=== PATIENT | male | born 1965 | race Caucasian/White ===

== ENCOUNTER 2017-12-30 17:15 | Emergency (ER) | payer OTHER ==
[2017-12-30 17:22] VITALS: BMI 23.1
[2017-12-30] MEDS ORDERED: ACETAMINOPHEN 325 MG TABLET (FP) PO ONE (17:38)
[2017-12-30] MEDS ORDERED: LORATADINE 10 MG TABLET PO ONE (17:38)
[2017-12-30] MEDS ORDERED: ACETAMINOPHEN 325 MG TABLET (FP) ONE (17:41)
[2017-12-30] MEDS ORDERED: LORATADINE 10 MG TABLET ONE (17:41)
--- NOTE | 2017-12-30 17:52 | PDOC ---
History of Present Illness - General Chief Complaint: Respiratory Stated Complaint: COUGHING Time Seen by Provider: 12/30/17 17:23 History Source: Patient Exam Limitations: No Limitations - History of Present Illness Initial Comments: CHIEF COMPLAINT: 52 y/o febrile, tachycardic male c/o fever, cough and cold symptoms x 1 week. HISTORY OF PRESENT ILLNESS: The patient states he has a productive cough of dark sputum. He took a cough medicine yesterday but nothing else. He does not have a history of high blood pressure. He denies POSADA, neck pain, n/v/d, runny nose, nasal congestion, dizziness, CP, SOB. Past History - Past Medical History Allergies/Adverse Reactions: Allergies Allergy/AdvReac Type Severity Reaction Status Date / Time No Known Allergies Allergy Verified 12/30/17 17:22 Home Medications: Ambulatory Orders Azithromycin [Zithromax 250mg Tablets -] 250 mg PO UTDICT #6 tab 12/30/17 COPD: No Hypercholesterolemia: Yes - Suicide/Smoking/Psychosocial Hx Smoking History: Never smoked Review of Systems - Review of Systems Able to Perform ROS?: Yes Constitutional: Yes: Fever. No: Chills, Night Sweats HEENTM: Yes: Throat Pain, Other (painful swallowing). No: Ear Pain, Ear Discharge, Throat Swelling, Difficulty Swallowing Respiratory: Yes: Cough. No: Shortness of Breath, Wheezing Cardiac (ROS): No: Chest Pain ABD/GI: No: Diarrhea, Vomiting Musculoskeletal: No: Neck Pain Neurological: No: Headache, Dizziness *Physical Exam - Vital Signs Last Vital Signs Temp Pulse Resp BP Pulse Ox 99.5 F 102 H 20 150/106 98 12/30/17 17:20 12/30/17 17:20 12/30/17 17:20 12/30/17 17:20 12/30/17 17:20 - Physical Exam Comments: The patient is non toxic but ill appearing. General Appearance: Yes: Nourished, Appropriately Dressed. No: Apparent Distress HEENT: positive: EOMI, ADAM, Pharyngeal Erythema, Tonsillar Erythema, Nasal Congestion, Sinus Tenderness (maxillary). negative: Tonsillar Exudate, Rhinorrhea Neck: negative: Lymphadenopathy (R), Lymphadenopathy (L) Respiratory/Chest: positive: Lungs Clear, Normal Breath Sounds. negative: Accessory Muscle Use, Crackles, Rhonchi, Wheezing Cardiovascular: positive: Regular Rhythm, Tachycardia Neurologic: positive: social psychologist II-XII NML intact, Fully Oriented, Alert, Normal Mood/ Affect, Motor Strength / ED Treatment Course - RADIOLOGY Radiology Studies Ordered: Category Date Time Status CHEST PA & LAT [RAD] Stat Radiology 12/30/17 17:38 Ordered Medical Decision Making - Medical Decision Making A/P: 52 y/o male with fever and cough x 1 week. Plan is as follows: 1. CXR 2. PO tylenol 3. PO claritin CXR IMPRESSION (wet read): No acute pathology. Vital signs have improved, although blood pressure still high. Patient denies headache. He also denies history of HTN. Informed him that his blood pressure is high and that he would need to f/u with Dr. Jewell once he is feeling better to be evaluated for HTN. Will d/c to home with rx for zpack for sinus infection. Suggested he continue with cough medicine and take tylenol every 4 hours for fever. INstructed him to drink plenty of fluids, get lots of rest, return to the ER with any worsening or concerning symptoms. The patient verbalizes understanding of all instructions, has no further questions and is awaiting discharge. *DC/Admit/Observation/Transfer Diagnosis at time of Disposition: Hypertension Sinusitis Qualifiers: Sinusitis location: unspecified location Chronicity: acute Recurrence: not specified as recurrent Qualified Code(s): J01.90 - Acute sinusitis, unspecified URI (upper respiratory infection) Qualifiers: URI type: unspecified URI Qualified Code(s): J06.9 - Acute upper respiratory infection, unspecified - Discharge Dispostion Disposition: HOME Condition at time of disposition: Improved - Prescriptions Prescriptions: Azithromycin [Zithromax 250mg Tablets -] 250 mg PO UTDICT #6 tab - Referrals Referrals: Jose Angel Jewell MD [Primary Care Provider] - (Call Monday) - Patient Instructions Printed Discharge Instructions: DI for Sinusitis, DI for Viral Upper Respiratory Infection -- Adult, DI for High Blood Pressure Additional Instructions: Discharge Instructions: -You have high blood pressure in the Emergency Room. It is very important that you follow up with Dr. Jewlel to have your blood pressure rechecked once you are feeling better. -A prescription for antibiotics has been sent to your pharmacy; please take as prescribed -Take 650mg of Tylenol every 4 hours for fever -Drink plenty of fluids and get lots of rest -Follow up with your doctor next week -Return to the ER with any worsening or concerning symptoms - Post Discharge Activity Forms/Work/School Notes: Back to Work
[2017-12-30 18:33] VITALS: BP 145/103; PULSE 93; TEMP 99.1
== END 2017-12-30 18:42 | disposition home or self-care (01) ==
LOC: JERFT 17:15
DX: I10 Essential (primary) hypertension (principal); J01.90 Acute sinusitis, unspecified; J06.9 Acute upper respiratory infection, unspecified
CPT/HCPCS: 71046-TC-FY; 99281-25

== ENCOUNTER 2020-10-11 21:56 | Observation (INO) | payer OTHER ==
[2020-10-11 22:06] VITALS: BMI 23.7
[2020-10-11 23:17] LABS: BASO % 0.6 % (0-2.0); EOS % 0.6 % (0-4.5); HEMATOCRIT 40.2 % (35.4-49); HEMOGLOBIN 13.2 GM/dL (11.7-16.9); LYMPH % 21.2 % (8-40); MCHC 32.9 g/dl (32.0-35.9); MEAN CELL VOLUME 88.2 fl (80-96); MEAN PLT VOLUME 8.9 fl (7.5-11.1); MONO % 8.3 % (3.8-10.2); NEUT % 69.3 % (42.8-82.8); PLATELET COUNT 204 K/MM3 (134-434); RBC 4.56 M/mm3 (4.00-5.60); RDW 12.9 % (11.9-15.9); WHITE BLOOD COUNT 6.2 K/mm3 (4.0-10.0)
[2020-10-11 23:23] LABS: INR 1.01 (0.83-1.09); PROTHROMBIN TIME (PATIENT) 12.4 SEC (9.7-13.0)
[2020-10-11 23:26] LABS: ACTIVATED PTT 28.4 SECONDS (25.2-36.5)
[2020-10-11 23:36] LABS: CHLORIDE 105 mmol/L (98-107); SODIUM 138 mmol/L (136-145)
[2020-10-11 23:38] LABS: CALCIUM 8.8 mg/dL (8.5-10.1)
[2020-10-11 23:39] LABS: ALBUMIN 3.5 g/dl (3.4-5.0); ANION GAP 5 MMOL/L (8-16); BLOOD UREA NITROGEN 23.2 mg/dL (7-18); CO2 27 mmol/L (21-32); GLUCOSE,RANDOM 106 mg/dL (74-106)
[2020-10-11 23:42] LABS: CREATININE 1.1 mg/dL (0.55-1.3); SGOT/AST 28 U/L (15-37); SGPT/ALT 30 U/L (13-61)
[2020-10-11 23:43] LABS: BILIRUBIN,TOTAL 0.3 mg/dL (0.2-1)
[2020-10-11 23:44] LABS: TOT PROT 6.5 g/dl (6.4-8.2)
[2020-10-11 23:45] LABS: ALK PHOS 118 U/L (45-117)
[2020-10-12] MEDS ORDERED: ASPIRIN 81 MG CHEWABLE TABLETS PO ONE (02:07)
[2020-10-12] MEDS ORDERED: ASPIRIN 81 MG CHEWABLE TABLETS ONE ×2 (02:22→09:33)
[2020-10-12 07:15] LABS: CHLORIDE 105 mmol/L (98-107); SODIUM 138 mmol/L (136-145)
[2020-10-12 07:21] LABS: BLOOD UREA NITROGEN 18.5 mg/dL (7-18); CALCIUM 9.3 mg/dL (8.5-10.1)
[2020-10-12 07:22] LABS: ALBUMIN 3.7 g/dl (3.4-5.0); ANION GAP 5 MMOL/L (8-16); CO2 28 mmol/L (21-32); GLUCOSE,RANDOM 95 mg/dL (74-106); MAGNESIUM 2.2 mg/dL (1.8-2.4)
[2020-10-12 07:25] LABS: BILIRUBIN,TOTAL 0.7 mg/dL (0.2-1); CHOLESTEROL 155 mg/dL (50-200); SGOT/AST 27 U/L (15-37); SGPT/ALT 31 U/L (13-61)
[2020-10-12 07:26] LABS: LDL CHOLESTEROL (ONLY SJRH) 70 mg/dL (5-100); TOT PROT 6.7 g/dl (6.4-8.2); TRIGLYCERIDES 42 mg/dL (0-150)
[2020-10-12 07:27] LABS: ALK PHOS 102 U/L (45-117); HDL CHOLESTEROL 69 mg/dL (40-60)
[2020-10-12 07:59] LABS: BASO % 0.4 % (0-2.0); EOS % 0.8 % (0-4.5); HEMATOCRIT 41.9 % (35.4-49); HEMOGLOBIN 13.9 GM/dL (11.7-16.9); LYMPH % 29.1 % (8-40); MCH 29.3 pg (25.7-33.7); MCHC 33.1 g/dl (32.0-35.9); MEAN CELL VOLUME 88.5 fl (80-96); MEAN PLT VOLUME 9.5 fl (7.5-11.1); MONO % 8.6 % (3.8-10.2); NEUT % 61.1 % (42.8-82.8); PLATELET COUNT 204 K/MM3 (134-434); RBC 4.74 M/mm3 (4.00-5.60); RDW 13.3 % (11.9-15.9); WHITE BLOOD COUNT 5.2 K/mm3 (4.0-10.0)
[2020-10-12 09:51] VITALS: BP 152/95; PULSE 62; TEMP 98
[2020-10-12] MEDS ORDERED: ASPIRIN 81 MG CHEWABLE TABLETS PO SCH (10:00)
[2020-10-13] MEDS ORDERED: ASPIRIN 81 MG CHEWABLE TABLETS PO SCH (10:00)
== END 2020-10-12 14:10 | disposition home or self-care (01) ==
LOC: JER 21:56 → JERBED 10-12 02:37
PROVIDERS: ADMIT Hospitalist; ATTEND Hospitalist
DX: F41.0 Panic disorder [episodic paroxysmal anxiety] (principal); E78.5 Hyperlipidemia, unspecified; I10 Essential (primary) hypertension; R07.9 Chest pain, unspecified; Z20.822 Contact with and (suspected) exposure to COVID-19; Z29.9 Encounter for prophylactic measures, unspecified; F32.9 Major depressive disorder, single episode, unspecified
CPT/HCPCS: 36415; 71045-TC-FY; 80053; 80061; 83721; 83735; 84443; 84484; 85025; 85610; 85730; 93005; 93010; 99285-25; C9803; G0378; U0003; U0005

== ENCOUNTER 2020-11-10 22:17 | Emergency (ER) | payer OTHER ==
[2020-11-10 22:37] VITALS: BP 140/96; PULSE 83; TEMP 97.9; BMI 23.6
[2020-11-10] MEDS ORDERED: ASPIRIN 81 MG CHEWABLE TABLETS PO ONE (23:09)
[2020-11-10] MEDS ORDERED: ASPIRIN 81 MG CHEWABLE TABLETS ONE (23:17)
== END 2020-11-10 23:35 | disposition left against medical advice (07) ==
LOC: JER 22:17
DX: R07.9 Chest pain, unspecified (principal)
CPT/HCPCS: 99282-25

== ENCOUNTER 2020-12-26 18:57 | Emergency (ER) | payer OTHER ==
[2020-12-26 19:41] VITALS: BP 164/113; PULSE 75; TEMP 97.9; BMI 23.7
[2020-12-26] MEDS ORDERED: VALSARTAN 40 MG TABLET PO ONE (21:02)
[2020-12-26] MEDS ORDERED: LORazepam 2 MG TABLET PO ONE (21:06)
[2020-12-26] MEDS ORDERED: LORazepam 0.5 MG TABLET ONE (21:12)
== END 2020-12-26 21:50 | disposition home or self-care (01) ==
LOC: JER 18:57
DX: R03.0 Elevated blood-pressure reading, without diagnosis of hypertension (principal)
CPT/HCPCS: 93005; 93010; 99283-25